=== PATIENT | male | born 2005 | race Caucasian/White ===

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

== ENCOUNTER 2024-06-20 15:27 | Emergency (ER) | payer OTHER ==
[~2024-06-20] VITALS: Ht 180.3 cm; Wt 65.9 kg
[2024-06-20 15:53] VITALS: BP 124/80; PULSE 59; RESP 18; TEMP 98.2; O2SAT 100
[2024-06-20] MEDS: LIDOCAINE 1% 10 ML VIAL SQ ONE (16:28)
[2024-06-20] MEDS: BACITRACIN 0.9 GM PACKET OINTMENT TP ONE (16:29)
[2024-06-20] MEDS ORDERED: SULF-261 PO (16:39)
[2024-06-20] MEDS ORDERED: CEPH-558 PO (16:39)
[2024-06-20] MEDS: SULFAMETHOX/TRIMETH DS 800-160 MG/TABLET PO ONE (16:44)
[2024-06-20] MEDS: CEPHALEXIN MONOHYDRATE 500 MG CAPSULE PO ONE (16:44)
== END 2024-06-20 16:54 | disposition home or self-care (01) ==
LOC: EMS 15:27
DX: L02.211 Cutaneous abscess of abdominal wall (principal)
CPT/HCPCS: 99283; 10060; J3490